=== PATIENT | female | born 1980 | race Caucasian/White ===

== ENCOUNTER 2020-03-31 08:58 | Day surgery (SDC) | payer OTHER, SELFPAY ==
[2020-03-27 13:34] VITALS: BMI 33.9
[2020-03-31 09:24] VITALS: BP 133/97; PULSE 71; RESP 20; TEMP 36.2; O2SAT 96
[2020-03-31] MEDS: sodium chloride 0.9% 1,000 ML 30 ML IV (09:29)
--- NOTE | 2020-03-31 09:50 | P.ANESASSM_ITS ---
Pre-Anesthetic Assessment Pre-Anesthetic Assessment: Height/Weight: Height 1.68 m Weight 95.254 kg Temp Pulse Resp BP Pulse Ox 97.1 F L 71 20 H 133/97 96 03/31/20 09:24 03/31/20 09:24 03/31/20 09:24 03/31/20 09:24 03/31/20 09:24 Preop Diagnosis: constipation Proposed Procedure: Operation Date: 03/31/20 10:30 Proposed Procedures p Colonoscopy w/ poss biopsy poss polypectomy 88710 K59.09(Not Applicable) - George Holman MD Last intake: Intake Last Liquid Date 03/30/20 Last Liquid Time 21:00 Last Solid Date 03/29/20 Social: Social History: No alcohol and No tobacco Exam: Pre-Anes Outpt Exam: alert, oriented x 3, clear to auscultation bilaterally and regular rate & rhythm Airway: Submandibular: WNL Cervical ROM: WNL MP: 2 Dentition: Other (teeth ok) History/ROS: No significant history except as noted Pulmonary: Pulmonary: None reported CV/HEM: CV/HEM: None reported : : None reported Hepatic: Hepatic: None reported GI: GI: GERD (occ) Metabolic: Metabolic: Morbid obesity Musc/skel: Musc/skel: None reported Neuropsych: Neuropsych: None reported Anesthetic Plan: ASA status: 2 Anesthesia: Anesthesia Evaluation and MAC Risk of > 500 ml blood loss (7ml/kg in children): No Meds/Allergies Current Medications: Current Medications Generic Name Dose Route Start Last Admin Trade Name Freq PRN Reason Stop Dose Admin Sodium Chloride 1,000 mls @ 30 ml s/hr 03/31/20 09:15 03/31/20 09:29 Sodium Chloride 0.9% IV 30 mls/hr .Q24H JAMIE Administration PFSH Anesthesia 2 PFSH: Medical History Chronic constipation Endometriosis Surgical History History of hysterectomy (~2014) Family History Denies family history of Anesthesia complication Bleeding disorder Social History Smoking and tobacco status: never smoked Second hand smoke exposure: No Alcohol intake: never Adopted: No Caregiver/support person: Yes Lives independently: Yes Household members: spouse Housing: House Data Anesthesia Cardiac Studies: No Data to Display
--- NOTE | 2020-03-31 10:38 | W.PM.OPSUD ---
Surgery/Procedure H&P Update DATE OF PROCEDURE: March 31, 2020 DATE H&P PERFORMED: 03/23/20 H&P UPDATE INFORMATION: I have reviewed H&P completed within last 30 days, I have examined patient prior to procedure and No changes to prior documentation PREOP DIAGNOSIS: constipation PLANNED PROCEDURE: Operation Date: 03/31/20 10:30 Proposed Procedures p Colonoscopy w/ poss biopsy poss polypectomy 39782 K59.09(Not Applicable) - George Holman MD
[2020-03-31 11:02] VITALS: BP 132/82; PULSE 64; RESP 16; TEMP 36.3; O2SAT 95
--- NOTE | 2020-03-31 11:05 | ANE.PACU2 ---
Inpatient post-anesthesia follow up: Airway intact: Yes Vital signs: Temperature 97.1 F Pulse Rate 71 Respiratory Rate 20 Blood Pressure 133/97 Pulse Oximetry 96 Oxygen Delivery Me thod Room Air Oxygen Flow Rate Fraction of Inspir ed Oxygen Hydration adequate: Yes Nausea and vomiting: No Pain level: 1
[2020-03-31 11:15] VITALS: BP 136/90; PULSE 60; RESP 18; O2SAT 97
== END 2020-03-31 11:20 | disposition home or self-care (01) ==
PROVIDERS: PCP Nurse Practitioner Family; Visit Provider Surgery
PROC: 0DJD8ZZ Inspection of Lower Intestinal Tract, Via Natural or Artificial Opening Endoscopic (ICD-10-PCS; CPT 45378; principal; 2020-03-31 10:30)
DX: K59.09 Other constipation (principal); K21.9 Gastro-esophageal reflux disease without esophagitis; E66.01 Morbid (severe) obesity due to excess calories; Z68.33 Body mass index [BMI] 33.0-33.9, adult
CPT/HCPCS: 12345; 45378; J0171; J2704; J7030

== ENCOUNTER 2021-04-21 07:32 | Outpatient (CLI) | payer OTHER, SELFPAY ==
[2021-04-21 07:56] VITALS: BP 130/83; PULSE 76; RESP 18; TEMP 36.6; O2SAT 97; BMI 35.5
[2021-04-21 08:15] VITALS: BP 134/89; PULSE 69; RESP 16; O2SAT 96
[2021-04-21 08:16] VITALS: BP 138/89; PULSE 68; RESP 18; O2SAT 96
== END 2021-04-21 07:33 | disposition home or self-care (01) ==
LOC: OPS 07:41
PROVIDERS: PCP Nurse Practitioner Family; Visit Provider Nurse Practitioner Family
DX: U07.1 COVID-19 (principal)
CPT/HCPCS: 96365

== ENCOUNTER → 2022-07-27 11:27 | Outpatient (BNVA) | payer OTHER, SELFPAY | PROVIDERS: PCP Nurse Practitioner Family; Visit Provider Nurse Practitioner Family | DX: R91.8 Other nonspecific abnormal finding of lung field (principal); R07.9 Chest pain, unspecified; N39.0 Urinary tract infection, site not specified | CPT/HCPCS: 71046; 80053; 81000; 85025 ==

== ENCOUNTER → 2022-08-25 09:41 | Outpatient (BNVA) | payer OTHER, SELFPAY | PROVIDERS: PCP Nurse Practitioner Family; Visit Provider Nurse Practitioner Family | DX: Z87.440 Personal history of urinary (tract) infections (principal); R79.89 Other specified abnormal findings of blood chemistry | CPT/HCPCS: 80053; 81000; 85025 ==

== ENCOUNTER 2022-10-07 08:20 | Outpatient (CLI) | payer OTHER, SELFPAY ==
--- NOTE | 2022-10-07 08:30 | CT_ITS ---
WS: [id number] CT CHEST WITH INTRAVENOUS CONTRAST HISTORY: R91.1 - Solitary pulmonary nodule TECHNIQUE: Contiguous 5 mm axial imaging performed on the thorax. Coronal and sagittal reformats are submitted. All CT scans at [facility] use at least one of these dose optimization techniques: automated exposure control; mA and/or kV adjustment per patient size (includes targeted exams where dose is matched to clinical indication); or iterative reconstruction. CONTRAST: Omnipaque 350; 100 mL IV. DLP: 511.35 mGy.cm COMPARISON: None available. Lungs and central airway: Recently described pulmonary nodule in the RIGHT lung corresponds to a near ly completely calcified nodule measuring 11 x 10 mm. Central benign calcification. No additional nodu les or masses identified. Focal subsegmental atelectasis anterior RIGHT upper lobe. Pleura: Normal. No pleural effusion. Heart and pericardium: Normal size heart with no pericardial effusion. Mediastinum and destiny: No mediastinum or hilar adenopathy. Vessels: Normal size aortic and pulmonary artery. No coronary artery calcifications. Chest wall and lower neck: No soft tissue masses. Upper abdomen: Moderate-sized hiatal hernia. Visualized liver is negative. No adrenal mass. Osseous structures: No destructive process. CT/CT chest w con* [id number] IMPRESSION: 1. Benign granuloma RIGHT upper lobe. Corresponds to the nodule seen on recent chest radiograph. 2. No suspicious masses or nodules. 3. Moderate size hiatal hernia.
[2022-10-07] MEDS: iohexol 350 mg/mL 500 mL Btl (per mL) IV (08:48)
== END 2022-10-07 08:21 | disposition home or self-care (01) ==
LOC: RAD 08:24
PROVIDERS: PCP Nurse Practitioner Family; Visit Provider Nurse Practitioner Family
DX: R91.1 Solitary pulmonary nodule (principal); R07.9 Chest pain, unspecified; R91.8 Other nonspecific abnormal finding of lung field; J84.10 Pulmonary fibrosis, unspecified; K44.9 Diaphragmatic hernia without obstruction or gangrene
CPT/HCPCS: 71260; Q9967

== ENCOUNTER → 2022-10-13 09:01 | Outpatient (BNVA) | payer OTHER, SELFPAY | PROVIDERS: PCP Nurse Practitioner Family; Visit Provider Nurse Practitioner Family | DX: R79.89 Other specified abnormal findings of blood chemistry (principal) | CPT/HCPCS: 82977; 86705; 86706; 86709; 86803; 87340 ==

== ENCOUNTER 2023-01-04 10:11 | Emergency (ER) | payer OTHER, SELFPAY ==
[2023-01-04 10:19] VITALS: BP 135/86; PULSE 70; RESP 18; TEMP 36.7; O2SAT 94; BMI 28.2
[2023-01-04 10:22] VITALS: RESP 16
--- NOTE | 2023-01-04 10:49 | US_ITS ---
WS: [id number] RIGHT UPPER QUADRANT ULTRASOUND HISTORY: RUQ abdominal pain, n/v/d COMPARISON: 12/08/2022 Liver: 16.2 cm in length. Normal size liver and echogenicity. No bile duct dilatation or mass. Portal Vein: Normal hepatopetal flow with monophasic waveform. Gallbladder: Normally distended with stones. No pericholecystic fluid. No wall thickening. CBD: 0.4 cm Pancreas: Mild atrophy and thinning of the pancreas. The tail is not very well visualized due to everardo l gas. Right kidney: 11.0 cm in length. Normal size and echogenicity. No hydronephrosis or mass. Aorta and IVC: Unremarkable abdominal aorta and IVC. No ascites. US/US gall bladder [id number] IMPRESSION: 1. Cholelithiasis. Multiple small stones within the gallbladder but no evidenc e for acute cholecystitis. 2. No bile duct dilatation.
--- NOTE | 2023-01-04 10:53 | W.ED.ABDPA2 ---
Documented by User: ADALI Haro 01/05/23 12:24 HPI - Abdominal Pain General: Chief Complaint: Abdominal Pain Stated Complaint: abd pains Time Seen by Provider: 01/04/23 10:27 History of Present Illness: Patient is a 42-year-old female comes to the ED with abdominal pain. Symptoms started this morning after she drank some coffee. She has had gallbladder pain in the past and says this is similar to her past episodes. Patient is scheduled to have her gallbladder removed up in [place] on January 09. Pain is located in the right upper quadrant of the abdomen and then radiates to the back. She rates the pain currently an 8 out of 10. She is nauseous and has had an episode of emesis and diarrhea since onset of symptoms. Denies any fevers or bladder symptoms. Associated Symptoms: Reports diarrhea, nausea and vomiting; Denies chills, constipation, dysuria, fever(s), hematochezia and hematuria Review of Systems Const: Denies: fever(s), chills or fatigue Eyes: Denies: change in vision or eye discomfort ENMT: Denies: throat pain, odynophagia, nasal discharge or nasal congestion Card: Denies: chest pain, palpitations, edema, swelling of feet/ankles, dyspnea on exertion or orthopnea Resp: Denies: dyspnea, productive cough or non-productive cough GI: Reports: abdominal pain, nausea, vomiting and diarrhea; Denies: constipation or hematochezia : Denies: flank pain, dysuria or hematuria Musc: Denies: neck pain, back pain or extremity swelling Skin/Breast: Denies: rash or new lesions Neuro: Denies: headache(s), numbness in extremities or weakness in extremities PFSH ED PFSH: Medical History Chronic constipation Endometriosis Surgical History History of hysterectomy (~2014) Hx of bariatric surgery 08/25/2021 Status post colonoscopy (03/31/20) normal Family History Denies family history of Anesthesia complication Bleeding disorder Social History Smoking and tobacco status: never smoked Second hand smoke exposure: No Alcohol intake: never Substance/Drug Use: never Adopted: No Caregiver/support person: Yes Lives independently: Yes Household members: spouse Housing: House Physical Exam Const: COMMON NORMALS: patient oriented x3 HENMT: COMMON NORMALS: normocephalic HEAD & SCALP: normocephalic MOUTH: Normal oral and palatal mucosa present THROAT: posterior oropharynx normal and uvula midline Neck/C-Spine: COMMON NORMALS: supple GENERAL: Yes normal visual inspection Resp: COMMON NORMALS: normal respiratory effort, No retractions, No use of accessory muscles and clear to auscultation bilaterally AUSCULTATION: clear to auscultation bilaterally Cardio: COMMON NORMALS: regular rate, regular rhythm, S1 normal heart sound present, S2 normal heart sound present, No gallops present (Cardio), No clicks present (Cardio), No murmurs present (Cardio) and Peripheral pulses 2+ throughout RATE: regular rate RHYTHM: regular rhythm HEART SOUNDS: S1 normal heart sound present and S2 normal heart sound present PERIPHERAL PULSES: Peripheral pulses 2+ throughout GI: COMMON NORMALS: Normal to inspection, nondistended, normoactive bowel sounds present, Soft to palpation and no masses PALPATION: Yes Soft to palpation and Yes Tenderness to palpation present (GI) Details: RUQ : COMMON NORMALS: Yes no CVA tenderness BLADDER/KIDNEY EXAM: Yes no CVA tenderness Back/Pelvis: COMMON NORMALS: no CVA tenderness Extremity: COMMON NORMALS: normal to inspection Neuro: COMMON NORMALS: patient oriented x3 GAIT: Yes Normal gait present Skin: GENERAL SKIN EXAM: dry skin Course Vital Signs: Vital signs: Vital Signs Temperature 98.0 F 01/04/23 10:19 Pulse Rate 78 01/04/23 13:23 Respiratory Rate 18 01/04/23 13:23 Blood Pressure 134/68 01/04/23 13:23 Pulse Oximetry 98 01/04/23 13:23 Oxygen Delivery Me thod Room Air 01/04/23 10:19 MDM - Abdominal Pain Medical Decision Making Patient is a 42-year-old female comes to the ED with abdominal pain. Symptoms started this morning after she drank some coffee. She has had gallbladder pain in the past and says this is similar to her past episodes. Patient is scheduled to have her gallbladder removed up in [place] on January 09. Pain is located in the right upper quadrant of the abdomen and then radiates to the back. She rates the pain currently an 8 out of 10. She is nauseous and has had an episode of emesis and diarrhea since onset of symptoms. Denies any fevers or bladder symptoms. Vitals are stable. Patient appears nontoxic in no acute distress. She does have some right upper quadrant abdominal tenderness but rest of exam is benign. CBC and CMP are unremarkable. T. bili is normal. Ultrasound gallbladder shows cholelithiasis but no other acute findings. Patient was given IV pain meds and nausea meds and her symptoms improved. Patient was able to tolerate p.o. fluids. She was stable for discharge home. She sent home with a prescription for pain and nausea med and told to follow-up with her surgeon in [place] at her scheduled appointment next week to have gallbladder removed. Return to ED precautions given. Patient understood and agreed with plan. Lab Data I reviewed the patient's lab results. 01/04/23 10:48 01/04/23 10:48 Labs/Radiology: Radiology Impressions Gallbladder Ultrasound 01/04/23 10:49 IMPRESSION: 1. Cholelithiasis. Multiple small stones within the gallbladder but no evidence for acute cholecystitis. 2. No bile duct dilatation. Laboratory Results WBC 6.6 10^3/uL (4.0-10.0) 01/04/23 10:48 RBC 4.68 10^6/uL (4.1-5.3) 01/04/23 10:48 Hgb 13.6 g/dL (11.5-15.3) 01/04/23 10:48 Hct 42.2 % (37.0-47.0) 01/04/23 10:48 MCV 90.2 fl (81-99) 01/04/23 10:48 MCH 29.1 pg (28.0-34.0) 01/04/23 10:48 MCHC 32.2 g/dL (30.0-36.0) 01/04/23 10:48 RDW 11.9 % (12.1-15.1) L 01/04/23 10:48 Plt Count 257 10^3/cmm (130-400) 01/04/23 10:48 MPV 9.5 fL (7.4-10.4) 01/04/23 10:48 Neut % (Auto) 52.5 % 01/04/23 10:48 Lymph % (Auto) 38.1 % 01/04/23 10:48 Hemphill % (Auto) 5.9 % 01/04/23 10:48 Eos % (Auto) 2.6 % 01/04/23 10:48 Baso % (Auto) 0.6 % 01/04/23 10:48 Neut # (Auto) 3.49 10^3/uL (1.8-7.7) 01/04/23 10:48 Lymph # (Auto) 2.5 10^3/uL (0.8-4.8) 01/04/23 10:48 Hemphill # (Auto) 0.4 10^3/uL (0.2-0.9) 01/04/23 10:48 Eos # (Auto) 0.2 10^3/uL (0.0-0.8) 01/04/23 10:48 Baso # (Auto) 0.0 10^3/uL (0.0-0.1) 01/04/23 10:48 Nucleated RBC % (auto) 0 % 01/04/23 10:48 Nucleated RBCs # 0.0 /100WBC 01/04/23 10:48 Sodium 141 mmol/L (136-145) 01/04/23 10:48 Potassium 3.8 mmol/L (3.5-5.1) 01/04/23 10:48 Chloride 103 mmol/L (98-107) 01/04/23 10:48 Carbon Dioxide 25 mmol/L (22-29) 01/04/23 10:48 Anion Gap 16.8 (5-19) 01/04/23 10:48 BUN 10 mg/dL (6-20) 01/04/23 10:48 Creatinine 0.8 mg/dL (0.5-0.9) 01/04/23 10:48 GFR Calculation 77.9 mL/min (90-130) L 01/04/23 10:48 Glucose 96 mg/dL (65-115) 01/04/23 10:48 Calculated Osmolality 291 mOsm/kg (285-295) 01/04/23 10:48 Calcium 9.2 mg/dL (8.5-10.5) 01/04/23 10:48 Total Bilirubin 0.4 mg/dL (0.15-1.2) 01/04/23 10:48 AST 31 U/L (0-32) 01/04/23 10:48 ALT 55 U/L (0-33) H 01/04/23 10:48 Alkaline Phosphatase 135 U/L (35-105) H 01/04/23 10:48 Total Protein 7.4 g/dL (6.6-8.7) 01/04/23 10:48 Albumin 4.7 g/dL (3.5-5.2) 01/04/23 10:48 Globulin 2.7 g/dL (1.3-4.6) 01/04/23 10:48 Lipase 24 U/L (13-60) 01/04/23 10:48 HCG, Qual Negative (Negative) 01/04/23 10:48 Urine Color Yellow (Yellow) 01/04/23 10:48 Urine Appearance Hazy (CLEAR) A 01/04/23 10:48 Urine pH 7 (5-7) 01/04/23 10:48 Ur Specific Bellmore 1.010 (1.005-1.030) 01/04/23 10:48 Urine Protein Trace (Negative) 01/04/23 10:48 Urine Glucose (UA) Norm (Normal) 01/04/23 10:48 Urine Ketones Negative (Negative) 01/04/23 10:48 Urine Blood 3+ (Negative) H 01/04/23 10:48 Urine Nitrate Negative (Negative) 01/04/23 10:48 Urine Bilirubin Neg (Negative) 01/04/23 10:48 Urine Urobilinogen Neg mg/dL (Negative) 01/04/23 10:48 Ur Leukocyte Esterase 2+ (Negative) H 01/04/23 10:48 Urine RBC 5-10 /hpf (0-2) H 01/04/23 10:48 Urine WBC 25-40 /hpf (0-5) H 01/04/23 10:48 Ur Squamous Epith Cells 5-10 /hpf (0-5) H 01/04/23 10:48 Amorphous Sediment Not Reportable 01/04/23 10:48 Urine Bacteria 2+ /hpf (NONE) H 01/04/23 10:48 Discharge Plan Discharge Patient Disposition: Home Clinical Impression: Biliary colic Cholelithiasis Qualifiers: Cholelithiasis location: gallbladder Cholecystitis presence: without cholecystitis Biliary obstruction: without biliary obstruction Qualified Code(s): K80.20 - Calculus of gallbladder without cholecystitis without obstruction Condition: Stable Prescriptions: New ondansetron 4 mg tablet,disintegrating 4 mg PO Q8H PRN (Reason: nausea and vomiting) Qty: 20 0RF No Action citalopram [Celexa] 10 mg tablet 10 mg PO DAILY progesterone micronized 200 mg capsule 200 mg PO DAILY baclofen 10 mg tablet 10 mg PO DAILY PRN (Reason: Pain) diphenhydramine HCl [Benadryl] 25 mg Capsule 25 mg PO DAILY PRN (Reason: ALLERGIES) Qty: 0 Phenergan 25 mg Tablet 25 mg PO Q6H PRN (Reason: Nausea) Cbd Gummies 2 gummy PO BEDTIME hydroxyzine pamoate 50 mg capsule 50 mg PO BEDTIME PRN (Reason: sleep) Discharge Orders: Discharge ED (Routine); Ordered 01/04/23 Ordered By: Asim Gganon Referrals: Seema Sawyer FNP-C [Primary Care Provider] - Discharge Diet: Advance as tolerated and Clear Liquid Discharge Activity: Increase activity as tolerated Patient Instructions: Biliary Colic (ED), Opioid Safety Activity Restrictions/Additional Instructions: Follow-up with your medical provider as directed. Take medications as prescribed. Return to the ER or your medical provider if condition worsens. Please read and understand discharge instructions. Thank you for choosing [facility] for your healthcare needs today. Please realize this is an emergency room and that we are providing you with a medical screening exam and this may not be complete and all inclusive of all the testing and or work up that you may need to determine your ailment or severity of your illness. It is very important that you follow up as instructed or that you return to the Emergency Department should you have concerns or if your condition changes or worsens in any way. Coding Level of Care Code ED [employer] Documented by User: Parvez Beltran DO 01/05/23 13:23 HPI - Abdominal Pain General: Chief Complaint: Abdominal Pain Stated Complaint: abd pains Time Seen by Provider: 01/04/23 10:27 [facility] ED PFSH: Medical History Chronic constipation Endometriosis Surgical History History of hysterectomy (~2014) Hx of bariatric surgery 08/25/2021 Status post colonoscopy (03/31/20) normal Family History Denies family history of Anesthesia complication Bleeding disorder Social History Smoking and tobacco status: never smoked Second hand smoke exposure: No Alcohol intake: never Substance/Drug Use: never Adopted: No Caregiver/support person: Yes Lives independently: Yes Household members: spouse Housing: House Course Vital Signs: Vital signs: Vital Signs Temperature 98.0 F 01/04/23 10:19 Pulse Rate 78 01/04/23 13:23 Respiratory Rate 18 01/04/23 13:23 Blood Pressure 134/68 01/04/23 13:23 Pulse Oximetry 98 01/04/23 13:23 Oxygen Delivery Me thod Room Air 01/04/23 10:19 MDM - Abdominal Pain Medical Decision Making Patient is a 42-year-old female comes to the ED with abdominal pain. Symptoms started this morning after she drank some coffee. She has had gallbladder pain in the past and says this is similar to her past episodes. Patient is scheduled to have her gallbladder removed up in [place] on January 09. Pain is located in the right upper quadrant of the abdomen and then radiates to the back. She rates the pain currently an 8 out of 10. She is nauseous and has had an episode of emesis and diarrhea since onset of symptoms. Denies any fevers or bladder symptoms. Vitals are stable. Patient appears nontoxic in no acute distress. She does have some right upper quadrant abdominal tenderness but rest of exam is benign. CBC and CMP are unremarkable. T. bili is normal. Ultrasound gallbladder shows cholelithiasis but no other acute findings. Patient was given IV pain meds and nausea meds and her symptoms improved. Patient was able to tolerate p.o. fluids. She was stable for discharge home. She sent home with a prescription for pain and nausea med and told to follow-up with her surgeon in [place] at her scheduled appointment next week to have gallbladder removed. Return to ED precautions given. Patient understood and agreed with plan. Chart reviewed and patient discussed with midlevel. Agree with assessment and plan. Lab Data 01/04/23 10:48 01/04/23 10:48 Labs/Radiology: Radiology Impressions Gallbladder Ultrasound 01/04/23 10:49 IMPRESSION: 1. Cholelithiasis. Multiple small stones within the gallbladder but no evidence for acute cholecystitis. 2. No bile duct dilatation. Laboratory Results WBC 6.6 10^3/uL (4.0-10.0) 01/04/23 10:48 RBC 4.68 10^6/uL (4.1-5.3) 01/04/23 10:48 Hgb 13.6 g/dL (11.5-15.3) 01/04/23 10:48 Hct 42.2 % (37.0-47.0) 01/04/23 10:48 MCV 90.2 fl (81-99) 01/04/23 10:48 MCH 29.1 pg (28.0-34.0) 01/04/23 10:48 MCHC 32.2 g/dL (30.0-36.0) 01/04/23 10:48 RDW 11.9 % (12.1-15.1) L 01/04/23 10:48 Plt Count 257 10^3/cmm (130-400) 01/04/23 10:48 MPV 9.5 fL (7.4-10.4) 01/04/23 10:48 Neut % (Auto) 52.5 % 01/04/23 10:48 Lymph % (Auto) 38.1 % 01/04/23 10:48 Hemphill % (Auto) 5.9 % 01/04/23 10:48 Eos % (Auto) 2.6 % 01/04/23 10:48 Baso % (Auto) 0.6 % 01/04/23 10:48 Neut # (Auto) 3.49 10^3/uL (1.8-7.7) 01/04/23 10:48 Lymph # (Auto) 2.5 10^3/uL (0.8-4.8) 01/04/23 10:48 Hemphill # (Auto) 0.4 10^3/uL (0.2-0.9) 01/04/23 10:48 Eos # (Auto) 0.2 10^3/uL (0.0-0.8) 01/04/23 10:48 Baso # (Auto) 0.0 10^3/uL (0.0-0.1) 01/04/23 10:48 Nucleated RBC % (auto) 0 % 01/04/23 10:48 Nucleated RBCs # 0.0 /100WBC 01/04/23 10:48 Sodium 141 mmol/L (136-145) 01/04/23 10:48 Potassium 3.8 mmol/L (3.5-5.1) 01/04/23 10:48 Chloride 103 mmol/L (98-107) 01/04/23 10:48 Carbon Dioxide 25 mmol/L (22-29) 01/04/23 10:48 Anion Gap 16.8 (5-19) 01/04/23 10:48 BUN 10 mg/dL (6-20) 01/04/23 10:48 Creatinine 0.8 mg/dL (0.5-0.9) 01/04/23 10:48 GFR Calculation 77.9 mL/min (90-130) L 01/04/23 10:48 Glucose 96 mg/dL (65-115) 01/04/23 10:48 Calculated Osmolality 291 mOsm/kg (285-295) 01/04/23 10:48 Calcium 9.2 mg/dL (8.5-10.5) 01/04/23 10:48 Total Bilirubin 0.4 mg/dL (0.15-1.2) 01/04/23 10:48 AST 31 U/L (0-32) 01/04/23 10:48 ALT 55 U/L (0-33) H 01/04/23 10:48 Alkaline Phosphatase 135 U/L (35-105) H 01/04/23 10:48 Total Protein 7.4 g/dL (6.6-8.7) 01/04/23 10:48 Albumin 4.7 g/dL (3.5-5.2) 01/04/23 10:48 Globulin 2.7 g/dL (1.3-4.6) 01/04/23 10:48 Lipase 24 U/L (13-60) 01/04/23 10:48 HCG, Qual Negative (Negative) 01/04/23 10:48 Urine Color Yellow (Yellow) 01/04/23 10:48 Urine Appearance Hazy (CLEAR) A 01/04/23 10:48 Urine pH 7 (5-7) 01/04/23 10:48 Ur Specific [place] 1.010 (1.005-1.030) 01/04/23 10:48 Urine Protein Trace (Negative) 01/04/23 10:48 Urine Glucose (UA) Norm (Normal) 01/04/23 10:48 Urine Ketones Negative (Negative) 01/04/23 10:48 Urine Blood 3+ (Negative) H 01/04/23 10:48 Urine Nitrate Negative (Negative) 01/04/23 10:48 Urine Bilirubin Neg (Negative) 01/04/23 10:48 Urine Urobilinogen Neg mg/dL (Negative) 01/04/23 10:48 Ur Leukocyte Esterase 2+ (Negative) H 01/04/23 10:48 Urine RBC 5-10 /hpf (0-2) H 01/04/23 10:48 Urine WBC 25-40 /hpf (0-5) H 01/04/23 10:48 Ur Squamous Epith Cells 5-10 /hpf (0-5) H 01/04/23 10:48 Amorphous Sediment Not Reportable 01/04/23 10:48 Urine Bacteria 2+ /hpf (NONE) H 01/04/23 10:48 Discharge Plan Discharge Patient Disposition: Home Clinical Impression: Biliary colic Cholelithiasis Qualifiers: Cholelithiasis location: gallbladder Cholecystitis presence: without cholecystitis Biliary obstruction: without biliary obstruction Qualified Code(s): K80.20 - Calculus of gallbladder without cholecystitis without obstruction Condition: Stable Prescriptions: New ondansetron 4 mg tablet,disintegrating 4 mg PO Q8H PRN (Reason: nausea and vomiting) Qty: 20 0RF No Action citalopram [Celexa] 10 mg tablet 10 mg PO DAILY progesterone micronized 200 mg capsule 200 mg PO DAILY baclofen 10 mg tablet 10 mg PO DAILY PRN (Reason: Pain) diphenhydramine HCl [Benadryl] 25 mg Capsule 25 mg PO DAILY PRN (Reason: ALLERGIES) Qty: 0 Phenergan 25 mg Tablet 25 mg PO Q6H PRN (Reason: Nausea) Cbd Gummies 2 gummy PO BEDTIME hydroxyzine pamoate 50 mg capsule 50 mg PO BEDTIME PRN (Reason: sleep) Discharge Orders: Discharge ED (Routine); Ordered 01/04/23 Ordered By: Asim Gagnon Referrals: Seema Sawyer FNP-C [Primary Care Provider] - Discharge Diet: Advance as tolerated and Clear Liquid Discharge Activity: Increase activity as tolerated Patient Instructions: Biliary Colic (ED), Opioid Safety Activity Restrictions/Additional Instructions: Follow-up with your medical provider as directed. Take medications as prescribed. Return to the ER or your medical provider if condition worsens. Please read and understand discharge instructions. Thank you for choosing [facility] for your healthcare needs today. Please realize this is an emergency room and that we are providing you with a medical screening exam and this may not be complete and all inclusive of all the testing and or work up that you may need to determine your ailment or severity of your illness. It is very important that you follow up as instructed or that you return to the Emergency Department should you have concerns or if your condition changes or worsens in any way. Coding Level of Care Code ED [employer]
[2023-01-04 10:58] LABS: Basophils % 0.6 %; Eosinophils # 0.2 10^3/uL (0.0-0.8); Eosinophils % 2.6 %; Hematocrit 42.2 % (37.0-47.0); Hemoglobin 13.6 g/dL (11.5-15.3); Lymphocytes # 2.5 10^3/uL (0.8-4.8); Lymphocytes % 38.1 %; Mean Corpuscular HGB Conc 32.2 g/dL (30.0-36.0); Mean Corpuscular Hemoglobin 29.1 pg (28.0-34.0); Mean Corpuscular Volume 90.2 fl (81-99); Mean Platelet Volume 9.5 fL (7.4-10.4); Monocytes # 0.4 10^3/uL (0.2-0.9); Monocytes % 5.9 %; Neutrophils # 3.49 10^3/uL (1.8-7.7); Neutrophils % 52.5 %; Nucleated Red Blood Cells % 0 %; Platelet Count 257 10^3/cmm (130-400); Red Blood Count 4.68 10^6/uL (4.1-5.3); Red Cell Distribution Width 11.9 % (12.1-15.1); White Blood Count 6.6 10^3/uL (4.0-10.0)
[2023-01-04] MEDS: ondansetron 2 mg/ML SDV 2 mL 4 MG IVP (11:09)
[2023-01-04] MEDS: LORazepam 2 mg/mL INJ 1 mL 0.5 MG IVP (11:09)
[2023-01-04] MEDS: sodium chloride 0.9% 1,000 ML 999 ML IV (11:09)
[2023-01-04 11:17] LABS: Add Urine Microscopic? YES; Bilirubin Urine Neg (Negative); Blood Urine 3+ (Negative); Glucose Urine UA Norm (Normal); Ketones Urine Negative (Negative); Leukocyte Esterase Urine 2+ (Negative); Nitrate Urine Negative (Negative); Protein Urine Trace (Negative); Urine Appearance Hazy (CLEAR); Urine Color Yellow (Yellow); Urobilinogen Urine Neg (Negative); pH Urine 7 (5-7)
[2023-01-04 11:18] LABS: WBC Urine 25-40 /hpf (0-5)
[2023-01-04 11:19] LABS: Add Urine Culture? Yes; Bacteria Urine 2+ /hpf
[2023-01-04 11:23] LABS: Alanine Aminotransferase 55 U/L (0-33); Albumin Level 4.7 g/dL (3.5-5.2); Alkaline Phosphatase 135 U/L (35-105); Anion Gap 16.8 (5-19); Aspartate Amino Transferase 31 U/L (0-32); Blood Urea Nitrogen 10 mg/dL (6-20); Calcium 9.2 mg/dL (8.5-10.5); Carbon Dioxide 25 mmol/L (22-29); Chloride 103 mmol/L (98-107); Globulin 2.7 g/dL (1.3-4.6); Glomerular Filtration Rate 77.9 mL/min (90-130); Glucose 96 mg/dL (65-115); Lipase 24 U/L (13-60); Osmolality Calculated 291 mOsm/kg (285-295); Potassium 3.8 mmol/L (3.5-5.1); Sodium 141 mmol/L (136-145); Total Bilirubin 0.4 mg/dL (0.15-1.2); Total Protein 7.4 g/dL (6.6-8.7)
[2023-01-04 11:29] LABS: HCG, Serum Qual Negative (Negative)
[2023-01-04 11:45] VITALS: RESP 16
[2023-01-04] MEDS: morphine 4 mg/mL SDV 1 mL 2 MG IVP (11:45)
[2023-01-04 13:13] VITALS: RESP 18; O2SAT 98
[2023-01-04] MEDS: morphine 4 mg/mL SDV 1 mL IVP (13:13)
[2023-01-04 13:23] VITALS: BP 134/68; PULSE 78; RESP 18; O2SAT 98
== END 2023-01-04 13:27 | disposition home or self-care (01) ==
PROVIDERS: Emergency Provider Physician Assistant; PCP Nurse Practitioner Family
DX: K80.20 Calculus of gallbladder without cholecystitis without obstruction (principal)
CPT/HCPCS: 76705; 80053; 81001; 83690; 84703; 85025; 87086; 96374; 96375; 96376; 99284; J2060; J2270; J2405; J7030

== ENCOUNTER 2023-01-05 22:20 | Emergency (ER) | payer OTHER, SELFPAY ==
[2023-01-05 22:28] VITALS: BP 111/72; PULSE 104; RESP 16; TEMP 38.4; O2SAT 92; BMI 28.2
[2023-01-05 22:30] VITALS: BP 107/52; RESP 18; O2SAT 95
[2023-01-05] MEDS: metoclopramide 5 mg/mL SDV 2 mL 10 MG IVP (22:39)
[2023-01-05] MEDS: sodium chloride 0.9% 1,000 ML 999 ML IV ×2 (22:39→23:41)
--- NOTE | 2023-01-05 22:47 | USR_ITS ---
PROCEDURE INFORMATION: Exam: US Abdomen, Limited; Right Upper Quadrant Exam date and time: 01/05/2023 11:15 PM Age: 42 years old Clinical indication: Abdominal pain; Other: Ruq pain x 2 days. Prior surgery; Surgery date: 6+ months; Surgery type: Gastric sleeve 2020; Additional info: Ruq abdominal pain, n/v TECHNIQUE: Imaging protocol: Real time ultrasound of the abdomen with image documentation. Limited exam focused on the right upper quadrant. COMPARISON: US gall bladder [id number] 01/04/2023 11:07 AM FINDINGS: Liver: Normal. No masses. Gallbladder: There are 4 hyperechoic foci seen within the dependent portion of the gallbladder exhibiting acoustic shadowing compatible with small gallstones. Biliary ducts: Normal. No stones. No dilation. Pancreas: Visualized pancreas is unremarkable. Right kidney: Normal. No mass. No hydronephrosis. US/US gall bladder [id number] IMPRESSION: 1. Small gallstones without evidence for cholecystitis. 2. There are no acute abdominal findings.
--- NOTE | 2023-01-05 22:48 | ED_ITS ---
HPI - Abdominal Pain General: Chief Complaint: Abdominal Pain Stated Complaint: vomiting, fever Time Seen by Provider: 01/05/23 22:24 History of Present Illness: Is a 42-year-old female comes to the ED with abdominal pain. Patient was seen here in the ED for same complaint yesterday January 04. Patient has an appointment with a surgeon in [place] to have her gallbladder removed this coming Monday, January 09. Patient states that she was feeling better after discharge from the ED yesterday but last night she tried a bite of an apple and her symptoms got worse. She started having abdominal pain on the right upper quadrant again along with nausea and vomiting. She also developed a fever last night and her fevers carried on into today. She has been taking the hydrocodone to help with pain and taking her nausea meds but they have not been helping. Her current pain is rated a 7 out of 10. She took her last dose of hydrocodone at 9 PM tonight. Denies any diarrhea or constipation. Associated Symptoms: Reports fever(s), nausea and vomiting; Denies chills, constipation, diarrhea, dysuria, hematochezia and hematuria Review of Systems Const: Reports: fever(s); Denies: chills or fatigue Eyes: Denies: change in vision or eye discomfort ENMT: Denies: throat pain, odynophagia, nasal discharge or nasal congestion Card: Denies: chest pain, palpitations, edema, swelling of feet/ankles, dyspnea on exertion or orthopnea Resp: Denies: dyspnea, productive cough or non-productive cough GI: Reports: abdominal pain, nausea and vomiting; Denies: diarrhea, constipation or hematochezia : Denies: flank pain, dysuria or hematuria Musc: Denies: neck pain, back pain or extremity swelling Skin/Breast: Denies: rash or new lesions Neuro: Denies: headache(s), numbness in extremities or weakness in extremities PFSH ED PFSH: Medical History Chronic constipation Endometriosis Surgical History History of hysterectomy (~2014) Hx of bariatric surgery 08/25/2021 Status post colonoscopy (03/31/20) normal Family History Denies family history of Anesthesia complication Bleeding disorder Social History Smoking and tobacco status: never smoked Second hand smoke exposure: No Alcohol intake: never Substance/Drug Use: never Adopted: No Caregiver/support person: Yes Lives independently: Yes Household members: spouse Housing: House Physical Exam Const: COMMON NORMALS: patient oriented x3 and alert GENERAL APPEARANCE: cooperative HENMT: COMMON NORMALS: normocephalic HEAD & SCALP: normocephalic MOUTH: Normal oral and palatal mucosa present THROAT: posterior oropharynx normal and uvula midline Neck/C-Spine: COMMON NORMALS: supple GENERAL: Yes normal visual inspection Resp: COMMON NORMALS: normal respiratory effort, No retractions, No use of accessory muscles and clear to auscultation bilaterally AUSCULTATION: clear to auscultation bilaterally Cardio: COMMON NORMALS: regular rate, regular rhythm, S1 normal heart sound present, S2 normal heart sound present, No gallops present (Cardio), No clicks present (Cardio), No murmurs present (Cardio) and Peripheral pulses 2+ throughout RATE: regular rate RHYTHM: regular rhythm HEART SOUNDS: S1 normal heart sound present and S2 normal heart sound present PERIPHERAL PULSES: Peripheral pulses 2+ throughout GI: COMMON NORMALS: Normal to inspection, nondistended, normoactive bowel sounds present, Soft to palpation and no masses PALPATION: Yes Soft to palpation and Yes Tenderness to palpation present (GI) Details: RUQ : COMMON NORMALS: Yes no CVA tenderness BLADDER/KIDNEY EXAM: Yes no CVA tenderness Back/Pelvis: COMMON NORMALS: no CVA tenderness Extremity: COMMON NORMALS: normal to inspection Neuro: COMMON NORMALS: patient oriented x3 SENSORIUM/ORIENTATION: Yes alert GAIT: Yes Normal gait present Skin: GENERAL SKIN EXAM: dry skin Course Vital Signs: Vital signs: Vital Signs Temperature 101.1 F H 01/05/23 22:28 Pulse Rate 80 01/06/23 00:54 Respiratory Rate 18 01/06/23 00:54 Blood Pressure 89/47 01/06/23 00:54 Pulse Oximetry 95 01/06/23 00:54 Oxygen Delivery Me thod Nasal Cannula 01/06/23 00:54 Oxygen Flow Rate 2 01/06/23 00:54 MDM - Abdominal Pain Medical Decision Making Patient is a 42-year-old female comes to the ED with abdominal pain. Patient has a history of gallbladder issues and is scheduled to have her gallbladder removed at a hospital in [place] this coming January 09. She has a temperature of 101.1 the rest of vitals are stable. She has right upper quadrant abdominal tenderness but rest of exam is benign. White blood cell cou nt of 14.9, AST 140 and ALT was 165. T. bili is normal. Ultrasound gallbladder did not show signs of acute cholecystitis but did note some gallstones. I contacted Dr. Walker about patient case and told him about patient's labs and ultrasound gallbladder findings. I informed him the patient has an appointment to have the gallbladder removed at hospital in [place] this coming January 09. He did not think patient had acute cholecystitis and if the patient's symptoms can be controlled she could be discharged home and put on an antibiotic, especially since she has close follow-up. Patient's symptoms were controlled with IV fluids, IV pain and nausea meds. She was given dose of IV a ntibiotics and stable for discharge home. Dr. Serrano reviewed case and agreed with plan. Lab Data I reviewed the patient's lab results. 01/05/23 22:35 01/05/23 22:35 Labs/Radiology: Laboratory Results WBC 14.9 10^3/uL (4.0-10.0) H 01/05/23 22:35 RBC 4.29 10^6/uL (4.1-5.3) 01/05/23 22:35 Hgb 12.8 g/dL (11.5-15.3) 01/05/23 22:35 Hct 38.7 % (37.0-47.0) 01/05/23 22:35 MCV 90.2 fl (81-99) 01/05/23 22:35 MCH 29.8 pg (28.0-34.0) 01/05/23 22: MCHC 33.1 g/dL (30.0-36.0) 01/05/23 22:35 RDW 12.3 % (12.1-15.1) 01/05/23 22:35 Plt Count 207 10^3/cmm (130-400) 01/05/23 22:35 MPV 9.5 fL (7.4-10.4) 01/05/23 22:35 Neut % (Auto) 86.8 % 01/05/23 22:35 Lymph % (Auto) 5.6 % 01/05/23 22:35 [place] % (Auto) 6.7 % 01/05/23 22:35 Eos % (Auto) 0.1 % 01/05/23 22:35 Baso % (Auto) 0.2 % 01/05/23 22:35 Neut # (Auto) 12.94 10^3/uL (1.8-7.7) H 01/05/23 22:35 Lymph # (Auto) 0.8 10^3/uL (0.8-4.8) 01/05/23 22:35 [place] # (Auto) 1.0 10^3/uL (0.2-0.9) H 01/05/23 22:35 Eos # (Auto) 0.0 10^3/uL (0.0-0.8) 01/05/23 22:35 Baso # (Auto) 0.0 10^3/uL (0.0-0.1) 01/05/23 22:35 Nucleated RBC % (auto) 0 % 01/05/23 22: Nucleated RBCs # 0.0 /100WBC 01/05/23 22:35 Sodium 138 mmol/L (136-145) 01/05/23 22:35 Potassium 3.9 mmol/L (3.5-5.1) 01/05/23 22:35 Chloride 104 mmol/L (98-107) 01/05/23 22:35 Carbon Dioxide 22 mmol/L (22-29) 01/05/23 22:35 Anion Gap 15.9 (5-19) 01/05/23 22:35 BUN 12 mg/dL (6-20) 01/05/23 22:35 Creatinine 0.9 mg/dL (0.5-0.9) 01/05/23 22:35 GFR Calculation 68.0 mL/min (90-130) L 01/05/23 22:35 Glucose 116 mg/dL (65-115) H 01/05/23 22:35 Calculated Osmolality 287 mOsm/kg (285-295) 01/05/23 22:35 Lactic Acid 0.7 mmol/L (0.5-2.2) 05/11/23 22:35 Calcium 8.8 mg/dL (8.5-10.5) 01/05/23 22:35 Total Bilirubin 0.8 mg/dL (0.15-1.2) 01/05/23 22:35 AST 140 U/L (0-32) H 01/05/23 22:35 ALT 165 U/L (0-33) H 01/05/23 22:35 Alkaline Phosphatase 179 U/L (35-105) H 01/05/23 22:35 Total Protein 6.8 g/dL (6.6-8.7) 01/05/23 22:35 Albumin 3.9 g/dL (3.5-5.2) 01/05/23 22:35 Globulin 2.9 g/dL (1.3-4.6) 01/05/23 22:35 Lipase 14 U/L (13-60) 01/05/23 22:35 Discharge Plan Discharge Patient Disposition: Home Clinical Impression: Biliary colic Cholelithiasis Qualifiers: Cholelithiasis location: gallbladder Cholecystitis presence: without cholecystitis Biliary obstruction: without biliary obstruction Qualified Code(s): K80.20 - Calculus of gallbladder without cholecystitis without obstruction Condition: Stable Prescriptions: New metoclopramide HCl 10 mg tablet 10 mg PO Q6H PRN (Reason: nausea and vomiting) Qty: 20 0RF amoxicillin-pot clavulanate 500-125 mg tablet 1 tab PO BID 7 Days Qty: 14 0RF No Action citalopram [Celexa] 10 mg tablet 10 mg PO DAILY progesterone micronized 200 mg capsule 200 mg PO DAILY baclofen 10 mg tablet 10 mg PO DAILY PRN (Reason: Pain) diphenhydramine HCl [Benadryl] 25 mg Capsule 25 mg PO DAILY PRN (Reason: ALLERGIES) Qty: 0 Phenergan 25 mg Tablet 25 mg PO Q6H PRN (Reason: Nausea) Cbd Gummies 2 gummy PO BEDTIME hydroxyzine pamoate 50 mg capsule 50 mg PO BEDTIME PRN (Reason: sleep) ondansetron 4 mg tablet,disintegrating 4 mg PO Q8H PRN (Reason: nausea and vomiting) Qty: 20 0RF Discharge Orders: Discharge ED (Routine); Ordered 01/06/23 Ordered By: Asim Gagnon Discharge Diet: Advance as tolerated and Clear Liquid Discharge Activity: Increase activity as tolerated Patient Instructions: Biliary Colic (ED), Gallstones (ED), Opioid Safety Activity Restrictions/Additional Instructions: Follow-up with medical provider as directed at your scheduled appointment this coming Monday, January 09. Clear liquid diet for the next 24 to 48 hours and slowly advance diet as tolerated. Take medications as prescribed. Return to the ER or your medical provider if condition worsens. Please read and understand discharge instructions. Thank you for choosing [facility] for your healthcare needs today. Please realize this is an emergency room and that we are providing you with a medical screening exam and this may not be complete and all inclusive of all the testing and or work up that you may need to determine your ailment or severity of your illness. It is very important that you follow up as instructed or that you return to the Emergency Department should you have concerns or if your condition changes or worsens in any way. Coding Level of Care Code ED Electrical Lineworker for Rodger Acosta
[2023-01-05 22:54] LABS: Basophils % 0.2 %; Eosinophils % 0.1 %; Hematocrit 38.7 % (37.0-47.0); Hemoglobin 12.8 g/dL (11.5-15.3); Lymphocytes # 0.8 10^3/uL (0.8-4.8); Lymphocytes % 5.6 %; Mean Corpuscular HGB Conc 33.1 g/dL (30.0-36.0); Mean Corpuscular Hemoglobin 29.8 pg (28.0-34.0); Mean Corpuscular Volume 90.2 fl (81-99); Mean Platelet Volume 9.5 fL (7.4-10.4); Monocytes % 6.7 %; Neutrophils # 12.94 10^3/uL (1.8-7.7); Neutrophils % 86.8 %; Nucleated Red Blood Cells % 0 %; Platelet Count 207 10^3/cmm (130-400); Red Blood Count 4.29 10^6/uL (4.1-5.3); Red Cell Distribution Width 12.3 % (12.1-15.1); White Blood Count 14.9 10^3/uL (4.0-10.0)
[2023-01-05] MEDS: LORazepam 2 mg/mL INJ 1 mL 0.5 MG IVP (22:55)
[2023-01-05 23:01] LABS: Lactic Sepsis W/Reflex 0.7 mmol/L (0.5-2.2)
[2023-01-05 23:02] LABS: Alanine Aminotransferase 165 U/L (0-33); Albumin Level 3.9 g/dL (3.5-5.2); Alkaline Phosphatase 179 U/L (35-105); Anion Gap 15.9 (5-19); Aspartate Amino Transferase 140 U/L (0-32); Blood Urea Nitrogen 12 mg/dL (6-20); Calcium 8.8 mg/dL (8.5-10.5); Carbon Dioxide 22 mmol/L (22-29); Chloride 104 mmol/L (98-107); Creatinine Clr Calc Pharmacy 84.7879; Globulin 2.9 g/dL (1.3-4.6); Glucose 116 mg/dL (65-115); Lipase 14 U/L (13-60); Osmolality Calculated 287 mOsm/kg (285-295); Potassium 3.9 mmol/L (3.5-5.1); Sodium 138 mmol/L (136-145); Total Bilirubin 0.8 mg/dL (0.15-1.2); Total Protein 6.8 g/dL (6.6-8.7)
[2023-01-05 23:09] VITALS: RESP 18; O2SAT 93
[2023-01-05] MEDS: morphine 4 mg/mL SDV 1 mL IVP (23:09)
[2023-01-05 23:37] VITALS: BP 90/62; PULSE 84; RESP 19; O2SAT 95
[2023-01-06 00:23] VITALS: BP 93/43; PULSE 79; RESP 19; O2SAT 95
[2023-01-06 00:54] VITALS: BP 89/47; PULSE 80; RESP 18; O2SAT 95
[2023-01-06] MEDS: ketorolac 30 mg/mL INJ IVP (01:24)
[2023-01-06] MEDS: ampicillin-sulbactam 1.5 GM in sodium chloride 0.9% (plus) 50 ML IV (01:24)
[2023-01-06 01:30] VITALS: BP 97/56
[2023-01-06 01:56] VITALS: BP 97/56; PULSE 81; RESP 18; O2SAT 97
--- NOTE | 2023-01-13 08:03 | DCPLANNER ---
TCM called patient due to no primary care physician - patient sees Seema Sawyer
== END 2023-01-06 01:57 | disposition home or self-care (01) ==
PROVIDERS: Emergency Provider Physician Assistant
DX: K80.20 Calculus of gallbladder without cholecystitis without obstruction (principal)
CPT/HCPCS: 76705; 80053; 83605; 83690; 85025; 96365; 96375; 99284; J0295; J1885; J2060; J2270; J2765; J7030

== ENCOUNTER 2023-03-06 15:08 | Emergency (ER) | payer OTHER, SELFPAY ==
[2023-03-06] VITALS (7 sets, daily range): BP systolic 90–159; BP diastolic 57–101; PULSE 79–101; RESP 18–26; TEMP 37; O2SAT 95–100; BMI 27.1
[2023-03-06 15:50] LABS: Basophils % 0.3 %; Hematocrit 40.8 % (37.0-47.0); Hemoglobin 13.5 g/dL (11.5-15.3); Lymphocytes # 0.7 10^3/uL (0.8-4.8); Lymphocytes % 5.7 %; Mean Corpuscular HGB Conc 33.1 g/dL (30.0-36.0); Mean Corpuscular Hemoglobin 29.2 pg (28.0-34.0); Mean Corpuscular Volume 88.3 fl (81-99); Mean Platelet Volume 9.2 fL (7.4-10.4); Monocytes # 0.2 10^3/uL (0.2-0.9); Monocytes % 1.3 %; Neutrophils # 10.47 10^3/uL (1.8-7.7); Neutrophils % 92.5 %; Nucleated Red Blood Cells % 0 %; Platelet Count 252 10^3/cmm (130-400); Red Blood Count 4.62 10^6/uL (4.1-5.3); Red Cell Distribution Width 12.8 % (12.1-15.1); White Blood Count 11.3 10^3/uL (4.0-10.0)
[2023-03-06 16:07] LABS: Alanine Aminotransferase 59 U/L (0-33); Albumin Level 4.4 g/dL (3.5-5.2); Alkaline Phosphatase 206 U/L (35-105); Anion Gap 19.3 (5-19); Aspartate Amino Transferase 42 U/L (0-32); Blood Urea Nitrogen 14 mg/dL (6-20); Calcium 9.9 mg/dL (8.5-10.5); Carbon Dioxide 22 mmol/L (22-29); Chloride 103 mmol/L (98-107); Globulin 3.1 g/dL (1.3-4.6); Glomerular Filtration Rate 60.2 mL/min (90-130); Glucose 106 mg/dL (65-115); Lipase 14 U/L (13-60); Osmolality Calculated 291 mOsm/kg (285-295); Potassium 4.3 mmol/L (3.5-5.1); Sodium 140 mmol/L (136-145); Total Bilirubin 0.6 mg/dL (0.15-1.2); Total Protein 7.5 g/dL (6.6-8.7)
[2023-03-06 16:14] LABS: HCG, Serum Qual Negative (Negative)
--- NOTE | 2023-03-06 17:10 | CTR_ITS ---
PROCEDURE INFORMATION: Exam: CT Abdomen And Pelvis With Contrast Exam date and time: 03/06/2023 5:20 PM Age: 42 years old Clinical indication: Abdominal pain; Localized; Left lower quadrant (llq); Prior surgery; Surgery date: 6+ months; Surgery type: Hyst; Additional info: Llq pain TECHNIQUE: Imaging protocol: Computed tomography of the abdomen and pelvis with contrast. Radiation optimization: All CT scans at this facility use at least one of these dose optimization techniques: automated exposure control; mA and/or kV adjustment per patient size (includes targeted exams where dose is matched to clinical indication); or iterative reconstruction. Contrast material: OMNI 350; Contrast volume: 100 ml; Contrast route: INTRAVENOUS (IV); REPORTING DATA: Count of CT and Cardiac NM exams in prior 12 months: This patient has received [address] and 0 known cardiac nuclear medicine studies in the 12 months prior to the current study. COMPARISON: US gall bladder [id number] 01/05/2023 11:15 PM RADIATION DOSE METRICS: Total DLP (mGy-cm): 646.83 FINDINGS: Liver: Normal. No mass. Gallbladder and bile ducts: Normal. No calcified stones. No ductal dilation. Pancreas: Normal. No ductal dilation. Spleen: Normal. No splenomegaly. Adrenal glands: Normal. No mass. Kidneys and ureters: Left hydronephrosis/hydroureter. Enhancement of the left renal collecting system. There is wall thickening of the urinary bladder. No obstructing calculus is appreciated. Findings are suspicious for urinary tract infection. Stomach and bowel: Patient is status post gastric sleeve procedure Appendix: No evidence of appendicitis. Intraperitoneal space: Unremarkable. No free air. No significant fluid collection. Vasculature: Unremarkable. No abdominal aortic aneurysm. Lymph nodes: Unremarkable. No enlarged lymph nodes. Urinary bladder: There is wall thickening and inflammatory change of the urinary bladder. Cystitis is suspected. Reproductive: Unremarkable as visualized. Bones/joints: Unremarkable. No acute fracture. Soft tissues: Unremarkable. CT/CT abdomen pelvis w con* [id number] IMPRESSION: Left hydronephrosis/hydroureter with enhancement of the left renal collecting system. No definitive obstructing calculus is appreciated. There is abnormal wall thickening inflammatory change of the urinary bladder. Findings are suggestive of urinary tract infection
--- NOTE | 2023-03-06 17:16 | W.ED.ABDPA2 ---
HPI - Abdominal Pain General: Chief Complaint: Abdominal Pain Stated Complaint: abd pain, feels like she might pass out Time Seen by Provider: 03/06/23 16:43 Source: patient Mode of arrival: ambulatory Limitations: no limitations History of Present Illness: 42-year-old female who states she has been having left lower quadrant pain throughout the day. States pain has been severe she had nausea and vomiting. She denies any radiation of the pain. States pain is currently an 8 out of 10 she did recently had a laparoscopic cholecystectomy last month. Associated Symptoms: Denies chills, diarrhea, dysuria, fever(s), nausea and vomiting Review of Systems Const: Denies: fever(s) or chills Eyes: Denies: eye discomfort ENMT: Denies: throat pain or dental pain Card: Denies: chest pain Resp: Denies: dyspnea GI: Reports: abdominal pain; Denies: nausea, vomiting or diarrhea : Denies: dysuria Musc: Denies: neck pain or back pain Skin/Breast: Denies: rash Neuro: Denies: headache(s) PFSH ED PFSH: Medical History Chronic constipation Endometriosis Surgical History History of hysterectomy (~2014) Hx of bariatric surgery 08/25/2021 Status post colonoscopy (03/31/20) normal Family History Denies family history of Anesthesia complication Bleeding disorder Social History Smoking and tobacco status: never smoked Second hand smoke exposure: No Alcohol intake: never Substance/Drug Use: never Adopted: No Caregiver/support person: Yes Lives independently: Yes Household members: spouse Housing: House Physical Exam Const: COMMON NORMALS: no acute distress, patient oriented x3 and healthy appearing HENMT: COMMON NORMALS: normocephalic and atraumatic HEAD & SCALP: normocephalic and atraumatic Neck/C-Spine: COMMON NORMALS: full ROM and supple Chest: COMMONS NORMALS: normal inspection of the chest Resp: COMMON NORMALS: normal respiratory effort, No retractions, No use of accessory muscles and clear to auscultation bilaterally AUSCULTATION: clear to auscultation bilaterally Cardio: COMMON NORMALS: regular rate, regular rhythm and No murmurs present (Cardio) RATE: regular rate RHYTHM: regular rhythm GI: COMMON NORMALS: Normal to inspection, nondistended, normoactive bowel sounds present, Soft to palpation and no masses PALPATION: Yes Soft to palpation OTHER: llq tenderness Extremity: COMMON NORMALS: normal to inspection and full ROM Neuro: COMMON NORMALS: patient oriented x3, moves all extremities and no focal motor deficits Psych: COMMON NORMALS: mental status grossly normal, Normal thought process present and cooperative THOUGHT PROCESS: Normal thought process present Skin: COMMON NORMALS: no rashes or lesions noted and no wounds GENERAL SKIN EXAM: no rashes or lesions noted Course Vital Signs: Vital signs: Vital Signs Temperature 98.6 F 03/06/23 15:12 Pulse Rate 98 03/06/23 19:16 Respiratory Rate 23 H 03/06/23 19:16 Blood Pressure 145/93 03/06/23 19:16 Pulse Oximetry 100 03/06/23 19:16 Oxygen Delivery Me thod Nasal Cannula 03/06/23 17:47 Oxygen Flow Rate 2 03/06/23 17:47 MDM - Abdominal Pain Medical Decision Making Patient presents with abdominal pain she does have acute cystitis she been afebrile here very mild leukocytosis CT did show some possible hydro spoke to urology at [facility] there is no stone noted on the CT scan no stones no signs of infected stone. She feels much improved here she like to go home we will start her on antibiotics give her IV antibiotics here along with pain meds and nausea medicine for home. Mom if she starts having a fever or any worsening symptoms she is to return she understands agrees to plan. Medical Records I reviewed the patient's medical records. Lab Data I reviewed the patient's lab results. 03/06/23 15:41 03/06/23 15:41 Labs/Radiology: Radiology Impressions Abdomen/Pelvis CT 03/06/23 17:10 IMPRESSION: Left hydronephrosis/hydroureter with enhancement of the left renal collecting system. No definitive obstructing calculus is appreciated. There is abnormal wall thickening inflammatory change of the urinary bladder. Findings are suggestive of urinary tract infection Laboratory Results WBC 11.3 10^3/uL (4.0-10.0) H 03/06/23 15:41 RBC 4.62 10^6/uL (4.1-5.3) 03/06/23 15:41 Hgb 13.5 g/dL (11.5-15.3) 03/06/23 15:41 Hct 40.8 % (37.0-47.0) 03/06/23 15:41 MCV 88.3 fl (81-99) 03/06/23 15:41 MCH 29.2 pg (28.0-34.0) 03/06/23 15:41 MCHC 33.1 g/dL (30.0-36.0) 03/06/23 15:41 RDW 12.8 % (12.1-15.1) 03/06/23 15:41 Plt Count 252 10^3/cmm (130-400) 03/06/23 15:41 MPV 9.2 fL (7.4-10.4) 03/06/23 15:41 Neut % (Auto) 92.5 % 03/06/23 15:41 Lymph % (Auto) 5.7 % 03/06/23 15:41 [place] % (Auto) 1.3 % 03/06/23 15:41 Eos % (Auto) 0.0 % 03/06/23 15:41 Baso % (Auto) 0.3 % 03/06/23 15:41 Neut # (Auto) 10.47 10^3/uL (1.8-7.7) H 03/06/23 15:41 Lymph # (Auto) 0.7 10^3/uL (0.8-4.8) L 03/06/23 15:41 [place] # (Auto) 0.2 10^3/uL (0.2-0.9) 03/06/23 15:41 Eos # (Auto) 0.0 10^3/uL (0.0-0.8) 03/06/23 15:41 Baso # (Auto) 0.0 10^3/uL (0.0-0.1) 03/06/23 15:41 Nucleated RBC % (auto) 0 % 03/06/23 15:41 Nucleated RBCs # 0.0 /100WBC 03/06/23 15:41 Sodium 140 mmol/L (136-145) 03/06/23 15:41 Potassium 4.3 mmol/L (3.5-5.1) 03/06/23 15:41 Chloride 103 mmol/L (98-107) 03/06/23 15:41 Carbon Dioxide 22 mmol/L (22-29) 03/06/23 15:41 Anion Gap 19.3 (5-19) H 03/06/23 15:41 BUN 14 mg/dL (6-20) 03/06/23 15:41 Creatinine 1.0 mg/dL (0.5-0.9) H 03/06/23 15:41 GFR Calculation 60.2 mL/min (90-130) L 03/06/23 15:41 Glucose 106 mg/dL (65-115) 03/06/23 15:41 Calculated Osmolality 291 mOsm/kg (285-295) 03/06/23 15:41 Calcium 9.9 mg/dL (8.5-10.5) 03/06/23 15:41 Total Bilirubin 0.6 mg/dL (0.15-1.2) 03/06/23 15:41 AST 42 U/L (0-32) H 03/06/23 15:41 ALT 59 U/L (0-33) H 03/06/23 15:41 Alkaline Phosphatase 206 U/L (35-105) H 03/06/23 15:41 Total Protein 7.5 g/dL (6.6-8.7) 03/06/23 15:41 Albumin 4.4 g/dL (3.5-5.2) 03/06/23 15:41 Globulin 3.1 g/dL (1.3-4.6) 03/06/23 15:41 Lipase 14 U/L (13-60) 03/06/23 15:41 HCG, Qual Negative (Negative) 03/06/23 15:41 Urine Color Yellow (Yellow) 03/06/23 17:20 Urine Appearance Hazy (CLEAR) A 03/06/23 17:20 Urine pH 6 (5-7) 03/06/23 17:20 Ur Specific [place] 1.010 (1.005-1.030) 03/06/23 17:20 Urine Protein Neg (Negative) 03/06/23 17:20 Urine Glucose (UA) Norm (Normal) 03/06/23 17:20 Urine Ketones 2+ (Negative) H 03/06/23 17:20 Urine Blood 2+ (Negative) H 03/06/23 17:20 Urine Nitrate Positive (Negative) H 03/06/23 17:20 Urine Bilirubin Neg (Negative) 03/06/23 17:20 Urine Urobilinogen 1 mg/dL (Negative) H 03/06/23 17:20 Ur Leukocyte Esterase 2+ (Negative) H 03/06/23 17:20 Urine RBC 0-4 /hpf (0-2) H 03/06/23 17:20 Urine WBC 40-55 /hpf (0-5) H 03/06/23 17:20 Ur Squamous Epith Cells 5-10 /hpf (0-5) H 03/06/23 17:20 Amorphous Sediment Not Reportable 03/06/23 17:20 Urine Bacteria 2+ /hpf (NONE) H 03/06/23 17:20 Discharge Plan Discharge Patient Disposition: Home Clinical Impression: Acute cystitis Condition: Stable Prescriptions: New hydrocodone-acetaminophen 5-325 mg tablet 1 tab PO Q6H PRN (Reason: pain) Qty: 14 0RF cephalexin 500 mg capsule 500 mg PO TID 7 Days Qty: 21 0RF ondansetron 4 mg tablet,disintegrating 4 mg PO Q6H PRN (Reason: nausea and vomiting) Qty: 14 0RF No Action citalopram [Celexa] 10 mg tablet 10 mg PO DAILY progesterone micronized 200 mg capsule 200 mg PO DAILY baclofen 10 mg tablet 10 mg PO DAILY PRN (Reason: Pain) diphenhydramine HCl [Benadryl] 25 mg Capsule 25 mg PO DAILY PRN (Reason: ALLERGIES) Qty: 0 Phenergan 25 mg Tablet 25 mg PO Q6H PRN (Reason: Nausea) Cbd Gummies 2 gummy PO BEDTIME hydroxyzine pamoate 50 mg capsule 50 mg PO BEDTIME PRN (Reason: sleep) ondansetron 4 mg tablet,disintegrating 4 mg PO Q8H PRN (Reason: nausea and vomiting) Qty: 20 0RF metoclopramide HCl 10 mg tablet 10 mg PO Q6H PRN (Reason: nausea and vomiting) Qty: 20 0RF Discharge Orders: Discharge ED (Routine); Ordered 03/06/23 Ordered By: Jelani Serrano Referrals: Seema Sawyer FNP-C [Primary Care Provider] - 1-3 days Discharge Diet: Advance as tolerated Discharge Activity: Resume usual activity Patient Instructions: Urinary Tract Infection in Women (ED), Opioid Safety Coding Level of Care Code ED Bricklayer Supervisor for Rodger Acosta
[2023-03-06] MEDS: iohexol 350 mg/mL 500 mL Btl (per mL) IV (17:30)
[2023-03-06] MEDS: LORazepam 2 mg/mL INJ 1 mL 1 MG IVP (17:32)
[2023-03-06] MEDS: HYDROmorphone 1 mg/mL INJ 1 mL 0.5 MG IVP (17:33)
[2023-03-06 18:07] LABS: Blood Urine 2+ (Negative); Glucose Urine UA Norm (Normal); Ketones Urine 2+ (Negative); Protein Urine Neg (Negative); Urine Appearance Hazy (CLEAR); Urine Color Yellow (Yellow); pH Urine 6 (5-7)
[2023-03-06 18:08] LABS: Add Urine Culture? Yes; Add Urine Microscopic? YES; Bacteria Urine 2+ /hpf; Bilirubin Urine Neg (Negative); Leukocyte Esterase Urine 2+ (Negative); Nitrate Urine Positive (Negative); RBC Urine 0-4 /hpf (0-2); Urobilinogen Urine 1 mg/dL (Negative); WBC Urine 40-55 /hpf (0-5)
[2023-03-06] MEDS: cefTRIAXone 1,000 MG in sodium chloride 0.9% (plus) 50 ML 100 MG IV (18:27)
--- NOTE | 2023-03-06 18:50 | PC.NURSE ---
Received report from URIEL Delgado at this time.
[2023-03-06] MEDS: HYDROcodone-acetaminophen 5-325 mg Tablet 1 TAB PO (19:12)
== END 2023-03-06 19:19 | disposition home or self-care (01) ==
PROVIDERS: Physician Assistant; Emergency Provider Emergency Medicine; PCP Nurse Practitioner Family
DX: N30.00 Acute cystitis without hematuria (principal); R11.2 Nausea with vomiting, unspecified
CPT/HCPCS: 36415; 74177; 80053; 81001; 83690; 84703; 85025; 87077; 87086; 87186; 96365; 96375; 99285; J0696; J1170; J2060; Q9967

== ENCOUNTER 2025-01-22 15:17 | Outpatient (CLI) | payer BC, OTHER, SELFPAY ==
--- NOTE | 2025-01-22 16:00 | MM_ITS ---
WS: [id number] BILATERAL 3D TOMOSYNTHESIS DIGITAL SCREENING MAMMOGRAPHY WITH CAD CLINICAL INFORMATION: SCREENING HISTORY: Screening mammogram. No current complaints. COMPARISON: 2021 TECHNIQUE: Bilateral CC and MLO views. FINDINGS: The breasts are composed of heterogeneous fibroglandular density tissue, which can limit the detection of small underlying mass lesions. No suspicious mass, asymmetry, calcifications, or architectural distortion. No evidence of malignancy. MM/MM scr tomosynthesis [id number] IMPRESSION: DENSITY: The breasts are heterogeneously dense, which may obscure small masses. BI-RADS: 1 - Negative FOLLOW UP: 1 Year Follow-up Recommend return to annual screening mammography.
== END 2025-01-22 15:18 | disposition home or self-care (01) ==
PROVIDERS: PCP Nurse Practitioner Family; Visit Provider Nurse Practitioner
DX: Z12.31 Encounter for screening mammogram for malignant neoplasm of breast (principal); R92.333 Mammographic heterogeneous density, bilateral breasts
CPT/HCPCS: 77063; 77067